=== PATIENT | female | born 1940 | race Caucasian/White ===

== ENCOUNTER 2018-02-23 17:42 | Inpatient (IN) | payer OTHER, MEDICARE ==
[~2018-02-23] VITALS: Ht 149.9 cm; Wt 52.6 kg
[~2018-02-23 17:42] MED LIST: AZOPT 10 ML10 ML OPH; COLACE100 M1 PO; COLACE100 MG PO; COUMADIN 5 MG TA5 MG PO; COUMADIN5 M2 PO; E400400 IU PO; FISH OIL CONCEN1 SGL PO; GLUCOSAMINE500 MG PO; IRON325 M1 PO; MIRALAX17 G1 PO; MULTIVITAMIN1 TAB PO; PERCOCET 325 MG1 TA2 PO; PERCOCET 5-3251 EACH PO; SENNA8.6 M1 PO; TYLENOL TAB 32325 MG PO; ULTRAM(MONOGRAP50 MG PO; VITAMIN C1000 M1 PO; [UNRECOGNIZED DRUG - OTHER] PO; [UNRECOGNIZED DRUG - OTHER] PO
[2018-02-23 18:52] LABS: ABSOLUTE BASOPHIL COUNT 0 /CUMM (0.0-0.2); ABSOLUTE EOSINOPHIL COUNT 0 /CUMM (0.0-0.7); ABSOLUTE GRANULOCYTE CT 1.1 /CUMM (1.4-6.5); ABSOLUTE LYMPH COUNT 0.8 /CUMM (1.2-3.4); ABSOLUTE MONOCYTE COUNT 0.4 /CUMM (0.10-0.60); BASOPHIL % 0.1 % (0.0-2.0); EOSINOPHIL % 0.1 % (0-5); GRANULOCYTE % 46.4 % (42.2-75.2); HEMATOCRIT 26.4 % (37-47); MEAN CORPUSCULAR HGB 32.7 PG (27.0-31.0); MEAN CORPUSCULAR HGB CONC 34.3 G/DL (33.0-37.0); MEAN CORPUSCULAR VOLUME 95.3 FL (81.0-99.0); MEAN PLATELET VOLUME 8.1 FL (7.4-10.4); RBC DISTRIBUTION WIDTH 14.9 % (11.5-14.5); WHITE BLOOD CELL COUNT 2.4 /CUMM (4.8-10.8)
[2018-02-23 18:53] LABS: PLATELET COUNT 76 /CUMM (130-400)
--- NOTE | 2018-02-23 19:50 | ED GENERAL ADULT ---
History of Present Illness General Chief Complaint: General Adult Stated Complaint: SIB PCP, ABNORMAL LAB RESULTS Source: patient, family, old records Exam Limitations: no limitations Vital Signs & Intake/Output Vital Signs & Intake/Output Vital Signs Date Time Temp Pulse Resp B/P B/P Pulse O2 O2 Flow FiO2 Mean Ox Delivery Rate 02/25 1419 97.2 88 20 110/70 97 02/25 0600 98.3 82 16 94/52 98 Room Air 02/24 2244 98.5 90 18 104/50 97 Room Air ED Intake and Output 02/25 0000 02/24 1200 Intake Total 2400 730 Output Total Balance 2400 730 Intake, IV 1200 250 Intake, Oral 1200 480 Patient 116 lb Weight Weight Reported by Patient Measurement Method Allergies Coded Allergies: Penicillins (ANKLE RASH 07/05/16) adhesive (RED SKIN 07/05/16) Uncoded Allergies: sensitive to odors (cough 02/02/15) Triage Note: PT PRESENTS TO THE ER C/O WEAKNESS. PT WAS SEEN BY PCP AND WAS SENT IN DUE TO BLOOD VALUES.. PER PT WEAK SINCE LAST WEEK AROUND FRIDAY OR FRIDAY.. PT ALSO HAS PETECHIA BLE. Triage Nurses Notes Reviewed? yes Onset: Gradual Duration: week(s): Severity: moderate HPI: This is a 77-year-old female with history of glaucoma, presenting to the emergency department with several weeks of progressive weakness outpatient labs which were significant for a newly discovered pancytopenia. Patient also notes she has bilateral lower extremity petechia which is new, first noticed today. She sought care at her doctor because of her progressive fatigue which is worse with exertion. She states that she has some difficulty climbing stairs, although denies shortness of breath. She has had no chest pain, fever, chills, vomiting, diarrhea. She has a reasonable appetite and has not changed her diet. She has had no recent travel. She does state she has been stressed recently although this is not particularly new. (Allen ESPINOZA,Edson) Reconcile Medications Atovaquone (Mepron) 750 MG/5 ML ORAL.SUSP 750 MG PO Q12H BABEISIOSIS Azithromycin (Zithromax) 250 MG TABLET 250 MG PO DAILY BABEISIOSIS Brinzolamide (Azopt 10 Ml) 1 % DROPS.SUSP 1 GTT OPH BID BOTH EYES- GLAUCOMA ( Reported) Doxycycline Hyclate 100 MG CAPSULE 1 CAP PO BID TICK [place]ORNE ILLNESS (Kameron SAPPJayant (TBS)) Past History Travel History Traveled to [place] past 21 day No Medical History Any Pertinent Medical History? 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 Relation not specified for: *No pertinent family history Hx Contributory? No (Edson Villa MD) Review of Systems Review of Systems Constitutional: Reports: malaise, weakness. Denies: chills, diaphoresis, fever. EENTM: Reports: no symptoms. Respiratory: Reports: no symptoms. Cardiovascular: Reports: no symptoms. GI: Reports: no symptoms. Genitourinary: Reports: no symptoms. Musculoskeletal: Reports: no symptoms. Skin: Reports: rash. Neurological/Psychological: Reports: no symptoms. Hematologic/Endocrine: Reports: no symptoms. (Edson Villa MD) Physical Exam Physical Exam General Appearance: well developed/nourished, no apparent distress, alert, awake , comfortable, thin Head: atraumatic, normal appearance Ears, Nose, Throat: normal pharynx, normal ENT inspection Neck: normal inspection, full range of motion Respiratory: normal breath sounds, chest non-tender, no respiratory distress Cardiovascular: regular rate/rhythm, normal peripheral pulses Gastrointestinal: normal bowel sounds, soft, non-tender, no organomegaly Back: normal inspection, normal range of motion Extremities: normal inspection, normal capillary refill, normal range of motion, no edema Skin: scattered petechia to bilateral lower extremities Core Measures ACS in differential dx? No CVA/TIA Diagnosis: No Sepsis Present: No Sepsis Focused Exam Completed? No (Edson Villa MD) Progress Differential Diagnoses I considered the following diagnoses in my evaluation of the patient: Blood dyscrasia, bone marrow failure, unknown toxic exposure, leukemia, low suspicion for acute infectious process. Plan of Care: Current Medications Sig/Dale Start time Last Medication Dose Stop Time Status Admin Azithromycin 250 MG Q24H 02/25 1000 AC 02/25 (Zithromax) 1040 Doxycycline Hyclate 100 MG Q12 02/24 2100 AC 02/25 (Vibramycin) 0931 Sodium Chloride 100 ML (Normal Saline 0.9%) Atovaquone 750 MG Q12H 02/24 1000 AC 02/25 (Mepron Angela 750MG/ 1040 5ML) Lactobacillus 1 CAP BID 02/24 0900 AC 02/25 Acidophilus 0903 (Probiotic) Laboratory Tests 02/25/18 0720: Anion Gap 8, Estimated GFR > 60, BUN/Creatinine Ratio 18.3, Factor VII Pending, CBC w Diff MAN DIFF ORDERED, RBC 2.72 L, MCV 92.9, MCH 31.6 H, MCHC 34.0, RDW 16.2 H, MPV 7.1 L, Segmented Neutrophils 30 L, Band Neutrophils 8 H, Lymphocytes 48, Monocytes 14 H, Platelet Estimate DECREASED, Polychromasia 1+, Anisocytosis 1+ This otherwise healthy 77-year-old female arrives with several weeks of progressive weakness and a newly identified pancytopenia. She also has lower extremity petechia. She is fatigued but in no acute distress with reassuring vital signs and a nonfocal exam apart from her skin findings. Case is discussed with on-call hospitalist. She agrees that the patient should be admitted for prompt hematologic consultation. She requests CT chest abdomen pelvis with IV contrast. Patient initially admitted on observation status. Initial ED EKG: normal intervals, normal p-waves, normal QRS complex, normal sinus rhythm, LAD (Allen ESPINOZA,Edson) Departure Departure Time of Disposition: 2241 Disposition: STILL A PATIENT Condition: Stable Clinical Impression Primary Impression: Symptomatic anemia Secondary Impressions: Pancytopenia Referrals: Jeri Syed MD (PCP/Family) Departure Forms: Customer Survey General Discharge Information Observation Note Spoke With: Florian ESPINOZA,Meena Physician Advisor Notified: JAYANT MONTES DE OCA DO Place Patient In: Non-ED OBS Care Area Rationale for Observation: My rational for observation is as follows Hematology consultation for new-onset pancytopenia, plan for repeat lab work; plan for cross-sectional imaging and frequent vital signs. (Edson Villa MD) Departure Prescriptions: Current Visit Scripts Azithromycin (Zithromax) 250 MG PO DAILY #8 TAB Atovaquone (Mepron) 750 MG PO Q12H #70 ML Doxycycline Hyclate 1 CAP PO BID #14 CAP PA/COPPER ETCHER Co-Sign Statement Statement: ED Attending supervision documentation- [] I saw and evaluated the patient. I have also reviewed all the pertinent lab results and diagnostic results. I agree with the findings and the plan of care as documented in the PA's/COPPER ETCHER's documentation. [x] I have reviewed the ED Record and agree with the PA's/COPPER ETCHER's documentation. [] Additions or exceptions (if any) to the PAs/COPPER ETCHER's note and plan are summarized below: [] (Jayant Montes De Oca DO (TBS)) Critical Care Note Critical Care Note Critical Care Time: non-applicable (Edson Villa MD) ED Attending Observation Initial Observation Note: I have seen and personally examined SONJA PINEDA on 02/23/18 at 2242. I agree with the current emergency department documentation. The disposition (admission or discharge) is uncertain at this time, she needs a period of observation for the following reason(s): The ED Nurse caring for this patient has been personally informed as to what the patient is being observed for. (Edson Villa MD)
--- NOTE | 2018-02-23 22:00 | CT SCAN REPORT ---
EXAMINATION: CT CHEST, ABDOMEN AND PELVIS. CLINICAL INFORMATION: Pancytopenia and weakness. COMPARISON: None TECHNIQUE: 5 mm thin axial and 3 mm reconstructed sagittal coronal images of chest, abdomen pelvis were obtained following IV 95 mL Optiray 320. DLP 323. FINDINGS: CHEST: The lungs are well-expanded without any acute pneumonic consolidation. There is a 3 mm calcified nodule left upper lobe, axial image 19, series 3. No additional nodule visualized. The thyroid lobes are symmetrical and normal. The central trachea and bronchi are widely patent. The heart size and the great vessels are normal caliber. No abnormal size mediastinal lymph nodes seen. No pericardial effusion. There is no pleural effusion or thickening. The axilla and the chest wall appears unremarkable. ABDOMEN AND PELVIS: Visualized liver, spleen, pancreas and bilateral adrenal glands unremarkable. The gallbladder is normal size without any radiopaque calculi. Both kidneys are normal size, shape and position. Punctate hypodensity seen in the midpole left kidney cortex question cysts. No radiopaque calculi or hydronephrosis seen. The abdominal aorta appears normal caliber. No large size lymph nodes seen. There is scattered stool and gas and stool throughout the colon without distention. The small bowel loops are normal caliber. The abdominal wall appears unremarkable. Imaging through the pelvis reveals unremarkable distended urinary bladder. The uterus is not visualized likely from previous surgery. No free fluid. Bone windows reveal grade 1 anterolisthesis L4-L5 with degenerative L5-S1 disc changes. Moderate bilateral facet joint hypertrophy at L4-L5 disc level is noted from likely L4 pars defect. No lytic or sclerotic process seen. IMPRESSION: Small calcified nodule left upper lobe. No additional nodule, mass or consolidation seen. No acute process seen in the abdomen or pelvis.
--- NOTE | 2018-02-23 22:46 | History & Physical ---
Severo ESPINOZA,Jacob 02/23/18 0756: General Information and HPI MD Statement: I have seen and personally examined SONJA PINEDA and documented this H&P. The patient is a 77 year old F who presented with a patient stated chief complaint of [fatigue with pancytopenia]. Source of Information: patient, old records Exam Limitations: no limitations History of Present Illness: Patient is a 77-year-old female with a PMH significant for leukopenia, anemia, osteoarthritis, spinal stenosis, Lyme disease who presents to the [facility] ED complaining of a two-week history of fatigue. Patient reports that her past 2 weeks she has experienced extreme fatigue, when she is normally a very active person. During that time she has had intermittent chills and fever over the last couple of days with a T-max at home of 101. She also reports rhinorrhea, postnasal drip, decreased appetite and reports being under a significant amount of stress recently. She also states that she believes that her voice has been changing during this time and is more raspy than normal. She first noticed a rash on her lower extremities on the day of admission. She reports spending a significant amount of time outdoors and her yard is adjacent to a wooded area. She does not recall any recent tick bites. she denies any night sweats, recent weight loss, nausea, vomiting, diarrhea, dysuria, hematuria , melena, BRBPR. Allergies/Medications Allergies: Coded Allergies: Penicillins (ANKLE RASH 07/05/16) adhesive (RED SKIN 07/05/16) Uncoded Allergies: sensitive to odors (cough 02/02/15) Observation Initial Note - I have personally examined SONJA PINEDA on 02/24/18 at 0107. The disposition of SONJA PINEDA is uncertain at this time and before a determination can be made, she requires a period of observation for the following reasons [fatigue with pancytopenia] Past History Travel History Traveled to [place] past 21 day No Medical History Neurological: NONE EENT: NONE (alcohol detox), benign positional vertigo (History straightforward he had), glaucoma Cardiovascular: conduction pathway block hypotension Respiratory: NONE Gastrointestinal: NONE Hepatic: NONE Renal: NONE Musculoskeletal: degen joint disease, osteoarthritis Psychiatric: NONE Endocrine: NONE Blood Disorders: leukopenia Cancer(s): NONE 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 Relation not specified for: *No pertinent family history Psychosocial History Where do you live? Home Who Do You Live With? spouse Services at Home: None Primary Language: Citizen Of [place] Smoking Status: Never Smoked ETOH Use: occasional use Illicit Drug Use: denies illicit drug use Functional Ability ADLs Independent: dressing, eating, toileting, bathing. Ambulation: independent IADLs Independent: shopping, housework, finances, food prep, telephone, transportation , medication admin. Review of Systems Review of Systems Constitutional: Reports: see HPI, chills, fever. Denies: unexplained weight loss. EENTM: Reports: see HPI, nasal congestion. Denies: blurred vision, double vision, visual changes. Cardiovascular: Denies: chest pain, edema, orthopena, palpitations, syncope. Respiratory: Denies: cough, short of breath, sputum production. GI: Denies: abdominal pain, constipation, diarrhea, melena, nausea, bloody stool, vomiting. Genitourinary: Denies: dysuria, frequency, hematuria. Musculoskeletal: Reports: no symptoms. Skin: Reports: rash. Neurological/Psychological: Denies: anxiety. Hematologic/Endocrine: Reports: bruising. Exam & Diagnostic Data Last 24 Hrs of Vital Signs/I&O Vital Signs Date Time Temp Pulse Resp B/P B/P Pulse O2 O2 Flow FiO2 Mean Ox Delivery Rate 02/23 2350 98.9 88 20 108/53 97 Room Air 02/23 2233 99.7 96 16 108/59 98 Room Air 02/23 2010 99.4 92 16 111/55 97 Room Air 02/23 1922 Room Air 02/23 1801 99.9 105 16 104/61 98 Room Air Intake & Output 02/24 0800 02/24 0000 02/23 1600 Intake Total 240 Output Total Balance 240 Intake, Oral 240 Patient 116 lb Weight Weight Reported by Patient Measurement Method Physical Exam General Appearance Alert, Oriented X3, Cooperative, No Acute Distress Skin nonblanchable petechia on the bilateral lower extremities from the knees to the ankles Skin Temp/Moisture Exam: Warm/Dry Sepsis Skin Exam (color): Normal for Ethnicity Neck Supple, No LAD Lymphatic Axillary nl, Cervical nl Cardiovascular Regular Rate, Normal S1, Normal S2 Lungs Clear to Auscultation, Normal Air Movement Abdomen Normal Bowel Sounds, Soft, No Tenderness Neurological Normal Speech, Strength at 5/5 X4 Ext, Normal Tone, Sensation Intact, Cranial Nerves 3-12 NL Extremities No Clubbing, No Cyanosis, No Edema Last 24 Hrs of Labs/Gutierrez: Laboratory Tests 02/24/18 0330: Lyme Disease Antibody Pending 02/23/182044: Urine Color YEL, Urine Clarity CLEAR, Urine pH 6.0, Ur Specific [place] 1.010, Urine Protein NEG, Urine Ketones NEG, Urine Nitrite NEG, Urine Bilirubin NEG, Urine Urobilinogen 0.2, Ur Leukocyte Esterase NEG, Ur Microscopic SEDIMENT EXAMINED, Urine RBC RARE, Urine WBC RARE, Ur Epithelial Cells RARE, Urine Bacteria FEW H, Urine Mucus RARE, Urine Hemoglobin TRACE-INTACT, Urine Glucose NEG 02/23/181831: Haptoglobin Pending 02/23/181831: Iron 32 L, TIBC 219 L, Ferritin 909.0 H, Total Bilirubin 1.2, Lactate Dehydrogenase 1264 H, Creatine Kinase 162 H, Vitamin B12 738, Folate > 20.0 H , TSH &T3 &Free T4 Intrp 1.700, CBC w Diff NO MAN DIFF REQ, RBC 2.77 L, MCV 95.3, MCH 32.7 H, MCHC 34.3, RDW 14.9 H, MPV 8.1, Gran % 46.4, Lymphocytes % 34.8, Monocytes % 18.6 H, Eosinophils % 0.1, Basophils % 0.1, Absolute Granulocytes 1.1 L, Absolute Lymphocytes 0.8 L, Absolute Monocytes 0.4, Absolute Eosinophils 0, Absolute Basophils 0 Diagnostic Data Other Results CT chest/abd/pelvis with IV contrast CHEST: The lungs are well-expanded without any acute pneumonic consolidation. There is a 3 mm calcified nodule left upper lobe, axial image 19, series 3. No additional nodule visualized. The thyroid lobes are symmetrical and normal. The central trachea and bronchi are widely patent. The heart size and the great vessels are normal caliber. No abnormal size mediastinal lymph nodes seen. No pericardial effusion. There is no pleural effusion or thickening. The axilla and the chest wall appears unremarkable. ABDOMEN AND PELVIS: Visualized liver, spleen, pancreas and bilateral adrenal glands unremarkable. The gallbladder is normal size without any radiopaque calculi. Both kidneys are normal size, shape and position. Punctate hypodensity seen in the midpole left kidney cortex question cysts. No radiopaque calculi or hydronephrosis seen. The abdominal aorta appears normal caliber. No large size lymph nodes seen. There is scattered stool and gas and stool throughout the colon without distention. The small bowel loops are normal caliber. The abdominal wall appears unremarkable. Imaging through the pelvis reveals unremarkable distended urinary bladder. The uterus is not visualized likely from previous surgery. No free fluid. Bone windows reveal grade 1 anterolisthesis L4-L5 with degenerative L5-S1 disc changes. Moderate bilateral facet joint hypertrophy at L4-L5 disc level is noted from likely L4 pars defect. No lytic or sclerotic process seen. IMPRESSION: Small calcified nodule left upper lobe. No additional nodule, mass or consolidation seen. No acute process seen in the abdomen or pelvis. Assessment/Plan Assessment: Patient is a 77-year-old female with a PMH significant for leukopenia, anemia, osteoarthritis, spinal stenosis, Lyme disease who presents to the [facility] ED complaining of a two-week history of fatigue. She has had associated rhinorrhea, postnasal drip, fever, chills, and on the day of admission developed a nonblanching petechial rash on her bilateral distal lower extremities. Vital signs on admission: T 99.9, P105, RR 16, BP 104/61, pulse ox 98% on room air Labs: WBC 2.4, H/H 9.0/26.4, MCV 95.3 platelets 76, sodium 135, potassium 4.2, chloride 99, CO2 24, BUN 20, creatinine 0.7, glucose 103, iron 32, TIBC 219, ferritin 909, AST 73, ALT 45, LDH 1264, creatinine kinase 162, B12 738, folate > 20, guaiac negative stool done in ED Problem list #Pancytopenia, with iron studies suggestive of anemia of chronic disease, possible secondary to tickborne illness although patient does not recall tick bite, also possible DIC with elevated LDH #chronic medical problems including osteoarthritis, spinal stenosis Plan -Placed in observation in the general medicine floor -Hematology consult placed with the answering service of Dr. Bustillos -ID consult to be placed in a.m. -Follow-up DIC panel, haptoglobin -Follow-up repeat CBCs in a.m. -Tick panel, empirically given 1 dose of doxycycline IV -Follow-up peripheral smear Diet: Regular diet DVT prophylaxis: Alps. Hold off pharmacologic DVT prophylaxis for now, if platelet level remains stable or increased consider starting subcutaneous heparin CODE STATUS: Full code As Ranked By This Provider Problem List: 1. Pancytopenia Core Measures/Misc (05/25) Acute Coronary Syndrome ACS Diagnosis: No Congestive Heart Failure Congestive Heart Failure Diagnosis No Cerebrovascular Accident CVA/TIA Diagnosis: No VTE (View Protocol) VTE Risk Factors Age>40 No Mechanical VTE Prophylaxis d/t N/A MechProphylax Ordered No VTE Pharm Prophylaxis d/t Platelets below ref range Sepsis (View protocol) Sepsis Present: No If YES complete Sepsis Event Note If YES complete Sepsis Event Note Eric ESPINOZA,[facility] 02/23/18 4401: General Information and HPI Allergies/Medications Home Med list Brinzolamide (Azopt 10 Ml) 1 % DROPS.SUSP 1 GTT OPH BID BOTH EYES- GLAUCOMA ( Reported) Core Measures/Misc (05/25) Sepsis (View protocol) If YES complete Sepsis Event Note If YES complete Sepsis Event Note Resident Review Statement Resident Statement: examined this patient, discussed with program management intern, agreed with program management intern Other Findings: HPI: 77/F with PMHx of chronic leukopenia & anemia, osteoarthritis, spinal stenosis, migraine, uterine cancer s/p hysterectomy, bilateral knee replacement, bilateral cataract surgery, and glaucoma who presents with CC of fatigue for the past 2 weeks. The pt was feeling generalized weakness and fatigue for the past 2 weeks, for the past 2 days she reported associated fever and chills with a measured home temperature of 101. She reports recent postnasal drip, poor appetite, hoarseness of voice and rhinorrhea. The patient was visiting her PCP when she noticed fashion her lower extremity, she had recent outdoor activities. She denies any other active complaints. Vitals: Temperature of 99.9 heartrate of 90s, BP in lower border of normal, o2 in upper 90s% on RA Labs: WBC 2.4, H&H 9&26, platelets 76, Na 135, iron profile shows anemia of chronic disease, AST 73, LDH 1264, CK 162. Imaging: CT chest& abdomen showed small calcification noted on the left upper lobe and no acute intra-abdominal or pelvis pathology. Assessment: Patient present with pancytopenia and bilateral lower extremity petechial rash up to the knees more anterior than posterior. She reports spending significant amount of time outdoor doing yard work. We send for peripheral blood smear and lab reported possible intra-RBCs inclusions bodies. She has pending, babesiosis , and ehrlichiosis. We started the patient on doxycycline and we will ask for ID consult in the morning. The patient has leukopenia and anemia for a long time for which we will ask for hematology consult. Problem list: * Pancytopenia, with LE petechiae * Generalize weakness and fatigue * RBCs inclusions bodies most likely secondary tick transmitted infection * Osteoarthritis * Spinal stenosis Plan: * Placed in observation and general medicine floor * Start doxycycline * Follow pending tick panel * Repeat CBCs in a.m. * Follow DIC panel, reticulocyte count, haptoglobin * Follow peripheral smear official report in a.m. * Hematology and ID consult -Regular diet -DVT PPx with ALPS, we will hold on pharmacological until thrombocytopenia followed in a.m. - Florian ESPINOZA, [facility] 02/24/18 0546: Core Measures/Misc (05/25) Sepsis (View protocol) If YES complete Sepsis Event Note If YES complete Sepsis Event Note Attending MD Review Statement Attending Statement Attending MD Statement: examined this patient, discuss w/resident/PA/PLYWOOD MATCHER, agreed w/resident/PA/PLYWOOD MATCHER, discussed with family, reviewed images, amended to note Attending Assessment/Plan: 77 yo F with h/o uterine cancer s/p hysterectomy, glaucoma, BPPV, Lyme disease, OA, spinal stenosis, baseline chronic anemia and leukopenia is sent in by PCP for abnormal labs. Patient reports 2-week h/o fatigue, tiredness, chills, low appetite and Tmax of 101. She had blood work done which showed pancytopenia and she was asked to come to ER for further evaluation. Tick panel sent by PCP is still pending. She also reports bilateral lower extremity petechial rash. She has no recent travel. No sick contacts. [place] and has been outdoors but is not sure if she may have had a tick bite. She does reports post nasal drip and a raspy voice. She denies chest pain, dyspnea or palpitations. No weight loss or night sweats. Vitals stable. Exam as above notable for nonblanching petechia to both lower extremities. Labs: WBC 2.4, H/H 9.0/26.4, Plt 76 (previously normal), Na 135, BUN 20, glucose 103, T. Bili 1.2, ALT 45, AST 73. LDH 1264. UA negative. CT chest/abdomen/pelvis: small calcified nodule left upper lobe, no acute process. Spleen not enlarged. EKG: sinus rhythm, LAD, no acute changes. Assessment and plan: 1. Pancytopenia given the presentation with fever, fatigue, chills, petechial rash, this points towards a tick-borne illness. Peripheral smear has been reported with intranuclear inclusion bodies. 2. Chronic normocytic anemia 3. History of uterine cancer - 23 hour observation on General medicine - Panculture - Await tick borne disease panel - Initiate IV doxycycline - Gentle IV hydration - Obtain ID consult - Await hematology consult - Check PT/INR, hemolysis work up. - Resume home meds DVT ppx Alps. Full code.
[2018-02-23 23:50] VITALS: BP 108/53
[2018-02-24 06:07] VITALS: BP 122/68
--- NOTE | 2018-02-24 07:27 | Cons- Hematology ---
General Information and HPI Consulting Request Date of Consult: 02/24/18 Requested By: Florian ESPINOZA,Meena History of Present Illness: I was asked to see this 77-year-old woman admitted with fever, fatigue and a recent tick bite. Patient denies headaches or dizziness. Patient denies shortness of breath cough chest pain or hemoptysis. Patient denies nausea vomiting diarrhea change in bowel habits. Patient denies GI blood loss. Patient denies dysuria hematuria. Patient denies bone aches or focal neurologic deficit. Patient does complain of a rash in the lower extremity. Past medical history is significant for"lifelong"leukopenia. Her son is has also been told of a low white count no formal hematologic consultations have ever been requested. Patient also has a history of early uterine cancer which she underwent surgery alone. Allergies/Medications Allergies: Coded Allergies: Penicillins (ANKLE RASH 07/05/16) adhesive (RED SKIN 07/05/16) Uncoded Allergies: sensitive to odors (cough 02/02/15) Home Med List: Brinzolamide (Azopt 10 Ml) 1 % DROPS.SUSP 1 GTT OPH BID BOTH EYES- GLAUCOMA ( Reported) Current Medications: Current Medications Sig/Dale Start time Last Medication Dose Route Stop Time Status Admin Doxycycline Hyclate 100 MG BID 02/24 0900 CAN PO Doxycycline Hyclate 100 MG Q12 02/24 0900 AC Dextrose/Water 100 ML IV Doxycycline Hyclate 100 MG ONCE ONE 02/23 2315 CAN Dextrose/Water 100 ML IV 02/24 0020 Doxycycline Hyclate 100 MG ONCE ONE 02/23 2315 DC 02/23 PO 02/23 2316 2317 Doxycycline Hyclate 0 .STK-MED ONE 02/23 2302 CAN PO Doxycycline Hyclate 100 MG ONCE ONE 02/23 2300 CAN PO 02/23 2301 Lactobacillus 1 CAP BID 02/24 0900 AC Acidophilus PO Sodium Chloride 1,000 ML Q13H 02/24 0245 AC 02/24 IV 02/24 1544 0303 Review of Systems Review of Systems: see HPI Past History Travel History Traveled to [place] past 21 day No Medical History Blood Transfusion Hx: No Neurological: NONE EENT: NONE (alcohol detox), benign positional vertigo (History straightforward he had), glaucoma Cardiovascular: conduction pathway block hypotension BUNDLE BRANCH BLOCK Respiratory: NONE Gastrointestinal: NONE Hepatic: NONE Renal: NONE Musculoskeletal: degen joint disease, osteoarthritis Psychiatric: NONE Endocrine: NONE Blood Disorders: leukopenia Cancer(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 Relation not specified for: *No pertinent family history Psychosocial History Where Do You Live? Home Who Do You Live With? spouse Services at Home: None Primary Language: Y[place] Smoking Status: Never Smoked ETOH Use: occasional use Illicit Drug Use: denies illicit drug use Functional Ability ADLs Independent: dressing, eating, toileting, bathing. Ambulation: independent IADLs Independent: shopping, housework, finances, food prep, telephone, transportation , medication admin. Exam & Diagnostic Data Vital Signs and I&O Vital Signs Date Time Temp Pulse Resp B/P B/P Pulse O2 O2 Flow FiO2 Mean Ox Delivery Rate 02/24 06 98.9 87 20 122/68 98 Room Air 02/23 2350 98.9 88 20 108/53 97 Room Air 02/23 2233 99.7 96 16 108/59 98 Room Air 02/23 2010 99.4 92 16 111/55 97 Room Air 02/23 1922 Room Air 02/23 1801 99.9 105 16 104/61 98 Room Air Intake & Output 02/24 0800 02/24 0000 02/23 1600 Intake Total 730 240 Output Total Balance 730 240 Intake, IV 250 Intake, Oral 480 240 Patient 116 lb Weight Weight Reported by Patient Measurement Method Gen.: in NAD ENT: Sclera anicteric Chest: Normal respiratory effort, clear breath sounds Cor: RRR, no extra sounds Abdomen: Soft, bowel sounds present, no tenderness, no rebound Extremities: Without clubbing, cyanosis, or edema Neurology: Alert and oriented 3, no gross deficit Skin: Petechiae in lower extremities Last 48 Hours of Lab Results: Laboratory Tests 02/24 02/23 02/23 0330 2045 1832 Hematology Haptoglobin Pending Serology Lyme Disease Antibody Pending Urines Urine Color (YEL,AMB,STR) YEL Urine Clarity (CLEAR) CLEAR Urine pH (5.0 - 8.0) 6.0 Ur Specific [place] (1.001 - 1.035) 1.010 Urine Protein (NEG,<30 MG/DL) NEG Urine Ketones (NEG) NEG Urine Nitrite (NEG) NEG Urine Bilirubin (NEG) NEG Urine Urobilinogen (0.1 - 1.0 EU/dl) 0.2 Ur Leukocyte Esterase (NEG) NEG Ur Microscopic SEDIMENT EXAMINED Urine RBC (0 - 5 /HPF) RARE Urine WBC (0 - 2 /HPF) RARE Ur Epithelial Cells (NONE,FEW) RARE Urine Bacteria (NEG/NONE) FEW H Urine Mucus (FEW,NONE) RARE Urine Hemoglobin (NEG) TRACE-INTACT Urine Glucose (N MG/DL) NEG 02/23 1832 Chemistry Iron (37 - 170 ug/dL) 32 L TIBC (265 - 497 ug/dL) 219 L Ferritin (11.1 - 264 ng/mL) 909.0 H Total Bilirubin (0.2 - 1.3 mg/dL) 1.2 Lactate Dehydrogenase (313 - 618 U/L) 1264 H Creatine Kinase (30 - 135 U/L) 162 H Vitamin B12 (239 - 931 pg/mL) 738 Folate (2.76 - 20.0 ng/mL) > 20.0 H TSH &T3 &Free T4 Intrp (0.270 - 4.20 uIU/mL) 1.700 Hematology CBC w Diff NO MAN DIFF REQ WBC (4.8 - 10.8 /CUMM) 2.4 L RBC (4.20 - 5.40 /CUMM) 2.77 L Hgb (12.0 - 16.0 G/DL) 9.0 L Hct (37 - 47 %) 26.4 L MCV (81.0 - 99.0 FL) 95.3 MCH (27.0 - 31.0 PG) 32.7 H MCHC (33.0 - 37.0 G/DL) 34.3 RDW (11.5 - 14.5 %) 14.9 H Plt Count (130 - 400 /CUMM) 76 L MPV (7.4 - 10.4 FL) 8.1 Gran % (42.2 - 75.2 %) 46.4 Lymphocytes % (20.5 - 51.1 %) 34.8 Monocytes % (1.7 - 9.3 %) 18.6 H Eosinophils % (0 - 5 %) 0.1 Basophils % (0.0 - 2.0 %) 0.1 Absolute Granulocytes (1.4 - 6.5 /CUMM) 1.1 L Absolute Lymphocytes (1.2 - 3.4 /CUMM) 0.8 L Absolute Monocytes (0.10 - 0.60 /CUMM) 0.4 Absolute Eosinophils (0.0 - 0.7 /CUMM) 0 Absolute Basophils (0.0 - 0.2 /CUMM) 0 Peripheral smear-possible red blood cell inclusion bodies, no immature white blood cells Imaging/Other Studies: CT-chest abdomen pelvis-small calcified pulmonary nodule Assessment/Plan Assessment: 1. Pancytopenia-patient's hemogram now manifests new anemia and thrombocytopenia. Careful review with the computer records documents leukopenia as far back as 2002. The clinical scenario and laboratory data are suggestive of a tickborne illness-babesiosis. Patient has begun doxycycline therapy. Recommend- Treatment has begun to tickborne illness, await serologies ID to see patient Await haptoglobin Check stools for occult blood Transfuse as clinically necessary follow CBC 2. Coagulopathy-review the [facility] computer records suggest the patient has always had a borderline elevated PT INR Recommend- Repeat PT PTT Check fibrinogen Check factor VII level 3. Chronic leukopenia-no immediate plans for a bone marrow aspiration biopsy, previous ZEUS was negative I discussed the above with the patient Recommendations: .. Consult Acknowledgment - Thank you for your consult request.
--- NOTE | 2018-02-24 08:00 | PN- Housestaff ---
Preeti ESPINOZA,Minesh 02/24/18 0800: Subjective Follow-up For: Babesiosis Pancytopenia Subjective: Patient was seen and examined today. Reports that she feels significantly better today however continues to have fatigue. Reports rash on legs. Denies any other symptoms. Review of Systems Constitutional: Reports: see HPI. Objective Last 24 Hrs of Vital Signs/I&O Vital Signs Date Time Temp Pulse Resp B/P B/P Pulse O2 O2 Flow FiO2 Mean Ox Delivery Rate 02/24 2244 98.5 90 18 104/50 97 Room Air 02/24 1600 Room Air 02/24 1410 99.0 94 18 108/56 97 Room Air 02/24 0607 98.9 87 20 122/68 98 Room Air 02/23 2350 98.9 88 20 108/53 97 Room Air Intake & Output 02/24 1600 02/24 0800 02/24 0000 Intake Total 1320 730 240 Output Total Balance 1320 730 240 Intake, IV 600 250 Intake, Oral 720 480 240 Patient 116 lb 116 lb Weight Weight Reported by Patient Reported by Patient Measurement Method Physical Exam General Appearance: Alert, Oriented X3, Cooperative, No Acute Distress Skin: petichial rash on legs bilaterally Skin Temp/Moisture Exam: Warm/Dry Sepsis Skin Exam (color): Normal for Ethnicity HEENT: Atraumatic, PERRLA, EOMI, Mucous Membr. moist/pink Cardiovascular: Regular Rate, Normal S1, Normal S2, No Murmurs Lungs: Clear to Auscultation, Normal Air Movement Abdomen: Normal Bowel Sounds, Soft, No Tenderness Neurological: Normal Gait, Normal Speech, Strength at 5/5 X4 Ext, Normal Tone, Sensation Intact, Cranial Nerves 3-12 NL Extremities: No Clubbing, No Cyanosis, No Edema, Normal Pulses, No Tenderness/ Swelling Vascular: Normal Pulses, Pulses Symmetrical Current Medications: Current Medications Sig/Dale Start time Last Medication Dose Route Stop Time Status Admin Atovaquone 750 MG Q12H 02/24 1000 AC 02/24 PO 204 Azithromycin 250 MG Q24H 02/25 1000 AC PO Azithromycin 500 MG Q24H 02/24 1000 DC 02/24 PO 1008 Doxycycline Hyclate 100 MG Q12 02/24 2100 AC 02/24 Sodium Chloride 100 ML IV 2036 Doxycycline Hyclate 100 MG BID 02/24 09 CAN PO Doxycycline Hyclate 100 MG Q12 02/24 0900 DC 02/24 Dextrose/Water 100 ML IV 0826 Doxycycline Hyclate 100 MG ONCE ONE 02/23 2315 CAN Dextrose/Water 100 ML IV 02/24 0020 Doxycycline Hyclate 100 MG ONCE ONE 02/23 2315 DC 02/23 PO 02/23 2316 2317 Doxycycline Hyclate 0 .STK-MED ONE 02/23 2302 CAN PO Doxycycline Hyclate 100 MG ONCE ONE 02/23 2300 CAN PO 02/23 2301 Lactobacillus 1 CAP BID 02/24 0900 AC 02/24 Acidophilus PO 204 Patient Medication 1 ED ONE ONE 02/24 1630 DC 02/24 Teaching ED 02/24 1631 2043 Sodium Chloride 1,000 ML Q13H 02/24 0245 DC 02/24 IV 02/24 1544 0303 Last 24 Hrs of Lab/Gutierrez Results Last 24 Hrs of Labs/Mics: Laboratory Tests 02/24/18 1800: CBC w Diff MAN DIFF ORDERED, RBC 2.81 L, MCV 92.7, MCH 31.8 H, MCHC 34.3, RDW 15.6 H, MPV 7.6, Segmented Neutrophils 41 L, Band Neutrophils 5, Lymphocytes 43, Monocytes 10 H, Eosinophils 1, Platelet Estimate DECREASED, Polychromasia 1 +, Anisocytosis 1+ 02/24/18 0825: APTT Cancelled 02/24/18 0703: Anion Gap 7, Estimated GFR > 60, BUN/Creatinine Ratio 21.4, PT 13.8 H, INR 1.26 H, APTT 34, Fibrinogen Activity 380, D-Dimer High Sensitivty 1170 H, CBC w Diff MAN DIFF ORDERED, RBC 2.29 L, MCV 94.7, MCH 32.2 H, MCHC 34.0, RDW 14.8 H, MPV 8.4, Segmented Neutrophils 55, Band Neutrophils 6 H, Lymphocytes 32, Monocytes 6, Basophils 1, Platelet Estimate DECREASED, Polychromasia 1+, Anisocytosis 1+, Retic Count 2.28 H, Babesia microti DNA PCR Pending, Ehrlichia DNA (PCR) Pending 02/24/18 0330: Lyme Disease Antibody 1.42 *H 02/24/18 0234: Lyme Ab (Western Blot) Pending, Lyme IgG 18 kDa Band Pending, Lyme IgG 23 kDa Band Pending, Lyme IgG 28 kDa Band Pending, Lyme IgG 30 kDa Band Pending, Lyme IgG 39 kDa Band Pending, Lyme IgG 41 kDa Band Pending, Lyme IgG 45 kDa Band Pending, Lyme IgG 58 kDa Band Pending, Lyme IgG 66 kDa Band Pending, Lyme IgG 93 kDa Band Pending, Lyme IgM (Western Blot) Pending, Lyme IgM 23 kDa Band Pending, Lyme IgM 39 kDa Band Pending, Lyme IgM 41 kDa Band Pending Microbiology 02/24 710 BLOOD: Blood Culture - RECD 02/24 710 BLOOD: Blood Culture - RECD Assessment/Plan Assessment: Patient is a 77-year-old female with a PMH significant for leukopenia, anemia, osteoarthritis, spinal stenosis, Lyme disease who presents to the [facility] ED complaining of a two-week history of fatigue. She has had associated rhinorrhea, postnasal drip, fever, chills, and on the day of admission developed a nonblanching petechial rash on her bilateral distal lower extremities. Vital signs on admission: T 99.9, P105, RR 16, BP 104/61, pulse ox 98% on room air Labs: WBC 2.4, H/H 9.0/26.4, MCV 95.3 platelets 76, sodium 135, potassium 4.2, chloride 99, CO2 24, BUN 20, creatinine 0.7, glucose 103, iron 32, TIBC 219, ferritin 909, AST 73, ALT 45, LDH 1264, creatinine kinase 162, B12 738, folate > 20, guaiac negative stool done in ED Problem list 1. Babesosis 2. Pancytopenia 3 Anemia /p 1 prbc 4. chronic medical problems including osteoarthritis, spinal stenosis Plan - Admitted to general medicine floor - Hematology and ID on board - Started atorvaquone and azithromycin today due to intra RBC inclusions and pancytopenia indicative of babesiosis - Continued doxycycline due to possiblity of co-infection -ID consult to be placed in a.m. -Follow-up DIC panel, haptoglobin - Significant anemia - drop in H/H to 7.4, patient was transfused 1pRBC after consent and type and screen - repeat CBC posttransfusion - Follow-up peripheral smear and quantification Diet: Regular diet DVT prophylaxis: Alps. Hold off pharmacologic DVT prophylaxis for now, if platelet level remains stable or increased consider starting subcutaneous heparin CODE STATUS: Full code Problem List: 1. Pancytopenia 2. Babesiosis Pain Ratin Pain Location: n/a Pain Goal: Remain pain free Pain Plan: prn Tomorrow's Labs & Rationales: cbc bep Devonte ESPINOZA,Jimkelly 02/24/18 1114: Attending MD Review Statement Attending Statement Attending MD Statement: examined this patient, discuss w/resident/PA/DIGITAL PRE PRESS OPERATOR, agreed w/resident/PA/DIGITAL PRE PRESS OPERATOR, discussed with family, reviewed EMR data (avail), discussed with nursing, discussed with case mgmt, amended to note Attending Assessment/Plan: Patient seen and examined. No issues overnight reported by nursing staff. Remains afebrile and hemodynamically stable. Resting comfortably and not in any acute distress. Continues to report lethargy. Denies chest pain. Denies shortness of breath. She is afebrile hemodynamically stable this morning. Laboratory data shows evidence of ongoing hemolysis with significant drop in hemoglobin level. Peripheral smear shows inclusion body suggestive of babesiosis. Change antibiotic therapy to atovaquone and azithromycin. Obtain ID consultation. Follow-up Lyme serology. In view of her significant drop in hemoglobin level in anticipation of further drop transfuse 1 unit of PRBC. Repeat hemoglobin level posttransfusion.
[2018-02-24 08:57] LABS: HEMATOCRIT 21.6 % (37-47); MEAN CORPUSCULAR HGB 32.2 PG (27.0-31.0); MEAN CORPUSCULAR VOLUME 94.7 FL (81.0-99.0); MEAN PLATELET VOLUME 8.4 FL (7.4-10.4); PLATELET COUNT 63 /CUMM (130-400); RBC DISTRIBUTION WIDTH 14.8 % (11.5-14.5); RED BLOOD CELL CT 2.29 /CUMM (4.20-5.40); WHITE BLOOD CELL COUNT 1.7 /CUMM (4.8-10.8)
[2018-02-24 09:48] LABS: RED BLOOD CELL CT 2.77 /CUMM (4.20-5.40)
[2018-02-24 09:49] LABS: PT 13.8 SEC (9.4-12.5); PTT 34 SEC (25-37)
[2018-02-24 14:10] VITALS: BP 108/56
--- NOTE | 2018-02-24 14:18 | Cons- Infect Disease ---
General Information and HPI Consulting Request Date of Consult: 02/24/18 Requested By: Siddharth Whitney MD Reason for Consult: Rule out Babesiosis Source of Information: patient History of Present Illness: This is a 77-year-old woman with a history of chronic, unexplained leukopenia, for which she has never sought evaluation, osteoarthritis, spinal stenosis and Lyme disease admitted on February 23 with a two week history of fatigue and several days of fevers and chills after outpatient blood work revealed low blood counts. On admission she was afebrile. Laboratory data revealed a white blood cell count of 2.4, H&H 9 and 26, platelets 76,000, with the peripheral smear revealing occasional atypical and reactive lymphs and red blood cell cytoplasmic ring structures. Chemistries from the morning labs revealed a BUN /creatinine of 20 and 0.7, a bilirubin of 1.5 and AST/ALT of 73 and 45. Urinalysis rare RBC/ rare WBCs. CT of the chest, abdomen and pelvis was negative for any acute process. She was begun on po Doxycycline on admission, which was changed to the IV route this morning after she complained of GI upset and was subsequently discontinued. She was also begun on Azithromycin and Atovaquone this morning. She has remained afebrile since admission. She denies any headaches or joint aches. She does recall removing a tick approximately 1 month prior to admission. Allergies/Medications Allergies: Coded Allergies: Penicillins (ANKLE RASH 07/05/16) adhesive (RED SKIN 07/05/16) Uncoded Allergies: sensitive to odors (cough 02/02/15) Home Med List: Brinzolamide (Azopt 10 Ml) 1 % DROPS.SUSP 1 GTT OPH BID BOTH EYES- GLAUCOMA ( Reported) Past History Travel History Traveled to [place] past 21 day No Medical History Blood Transfusion Hx: No Neurological: NONE EENT: benign positional vertigo (History straightforward he had), glaucoma Cardiovascular: conduction pathway block hypotension BUNDLE BRANCH BLOCK Respiratory: NONE Gastrointestinal: NONE Hepatic: NONE Renal: NONE Musculoskeletal: degen joint disease, osteoarthritis Psychiatric: NONE Endocrine: NONE Blood Disorders: leukopenia 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 Relation not specified for: *No pertinent family history Psychosocial History Where Do You Live? Home Who Do You Live With? spouse Services at Home: None Primary Language: Hebrew Smoking Status: Never Smoked ETOH Use: occasional use Illicit Drug Use: denies illicit drug use Functional Ability ADLs Independent: dressing, eating, toileting, bathing. Ambulation: independent IADLs Independent: shopping, housework, finances, food prep, telephone, transportation , medication admin. Review of Systems Review of Systems All Other Systems: Reviewed and Negative Exam & Diagnostic Data Last 24 Hrs of Vital Signs/I&O Vital Signs Date Time Temp Pulse Resp B/P B/P Pulse O2 O2 Flow FiO2 Mean Ox Delivery Rate 02/24 06 98.9 87 20 122/68 98 Room Air 02/23 2350 98.9 88 20 108/53 97 Room Air 02/23 2233 99.7 96 16 108/59 98 Room Air 02/23 2010 99.4 92 16 111/55 97 Room Air 02/23 1922 Room Air 02/23 1801 99.9 105 16 104/61 98 Room Air Intake & Output 02/24 1600 02/24 0800 02/24 0000 Intake Total 1320 730 240 Output Total Balance 1320 730 240 Intake, IV 600 250 Intake, Oral 720 480 240 Patient 116 lb 116 lb Weight Weight Reported by Patient Reported by Patient Measurement Method Physical Exam Other Physical Findings: She is awake and alert in no acute distress. She is afebrile. Skin reveals a petechial rash over both lower extremities. HEENT exam is negative. Neck is supple with no adenopathy. Lungs are clear. Heart regular rhythm with a 1/6 systolic ejection murmur. Abdomen is soft, nontender with positive bowel sounds. Back no CVA tenderness. Extremities no cyanosis, clubbing or edema. Neuro is without focality. Last 24 Hours of Lab Results: Laboratory Tests 02/24 02/24 02/24 0825 0703 0330 Chemistry Sodium (137 - 145 mmol/L) 135 L Potassium (3.5 - 5.1 mmol/L) 3.8 Chloride (98 - 107 mmol/L) 103 Carbon Dioxide (22 - 30 mmol/L) 24 Anion Gap (5 - 16) 7 BUN (7 - 17 mg/dL) 15 Creatinine (0.5 - 1.0 mg/dL) 0.7 Estimated GFR (>60 ml/min) > 60 BUN/Creatinine Ratio (7 - 25 %) 21.4 Coagulation PT (9.4 - 12.5 SEC) 13.8 H INR (0.90 - 1.19) 1.26 H APTT (25 - 37 SEC) Cancelled 34 Fibrinogen Activity (200 - 393 MG/DL) 380 D-Dimer High Sensitivty (0 - 243 ng/ml) 1170 H Hematology CBC w Diff MAN DIFF ORDERED WBC (4.8 - 10.8 /CUMM) 1.7 L RBC (4.20 - 5.40 /CUMM) 2.29 L Hgb (12.0 - 16.0 G/DL) 7.4 *L Hct (37 - 47 %) 21.6 L MCV (81.0 - 99.0 FL) 94.7 MCH (27.0 - 31.0 PG) 32.2 H MCHC (33.0 - 37.0 G/DL) 34.0 RDW (11.5 - 14.5 %) 14.8 H Plt Count (130 - 400 /CUMM) 63 L MPV (7.4 - 10.4 FL) 8.4 Segmented Neutrophils (42.2 - 75.2 %) 55 Band Neutrophils (0.0 - 5.0 %) 6 H Lymphocytes (20.5 - 51.1 %) 32 Monocytes (1.7 - 9.3 %) 6 Basophils (0.0 - 2.0 %) 1 Platelet Estimate (ADEQUATE) DECREASED Polychromasia 1+ Anisocytosis 1+ Retic Count (0.5 - 2.0 %) 2.28 H Serology Babesia microti DNA PCR Pending Lyme Disease Antibody (RATIO) 1.42 *H Ehrlichia DNA (PCR) Pending 02/24 02/23 02/23 [phone] Hematology Haptoglobin Pending Serology Lyme Ab (Western Blot) Pending Lyme IgG 18 kDa Band Pending Lyme IgG 23 kDa Band Pending Lyme IgG 28 kDa Band Pending Lyme IgG 30 kDa Band Pending Lyme IgG 39 kDa Band Pending Lyme IgG 41 kDa Band Pending Lyme IgG 45 kDa Band Pending Lyme IgG 58 kDa Band Pending Lyme IgG 66 kDa Band Pending Lyme IgG 93 kDa Band Pending Lyme IgM (Western Blot) Pending Lyme IgM 23 kDa Band Pending Lyme IgM 39 kDa Band Pending Lyme IgM 41 kDa Band Pending Urines Urine Color (YEL,AMB,STR) YEL Urine Clarity (CLEAR) CLEAR Urine pH (5.0 - 8.0) 6.0 Ur Specific Harlan (1.001 - 1.035) 1.010 Urine Protein (NEG,<30 MG/DL) NEG Urine Ketones (NEG) NEG Urine Nitrite (NEG) NEG Urine Bilirubin (NEG) NEG Urine Urobilinogen (0.1 - 1.0 EU/dl) 0.2 Ur Leukocyte Esterase (NEG) NEG Ur Microscopic SEDIMENT EXAMINED Urine RBC (0 - 5 /HPF) RARE Urine WBC (0 - 2 /HPF) RARE Ur Epithelial Cells (NONE,FEW) RARE Urine Bacteria (NEG/NONE) FEW H Urine Mucus (FEW,NONE) RARE Urine Hemoglobin (NEG) TRACE-INTACT Urine Glucose (N MG/DL) NEG 02/23 1832 Chemistry Iron (37 - 170 ug/dL) 32 L TIBC (265 - 497 ug/dL) 219 L Ferritin (11.1 - 264 ng/mL) 909.0 H Total Bilirubin (0.2 - 1.3 mg/dL) 1.2 Lactate Dehydrogenase (313 - 618 U/L) 1264 H Creatine Kinase (30 - 135 U/L) 162 H Vitamin B12 (239 - 931 pg/mL) 738 Folate (2.76 - 20.0 ng/mL) > 20.0 H TSH &T3 &Free T4 Intrp (0.270 - 4.20 uIU/mL) 1.700 Hematology CBC w Diff NO MAN DIFF REQ WBC (4.8 - 10.8 /CUMM) 2.4 L RBC (4.20 - 5.40 /CUMM) 2.77 L Hgb (12.0 - 16.0 G/DL) 9.0 L Hct (37 - 47 %) 26.4 L MCV (81.0 - 99.0 FL) 95.3 MCH (27.0 - 31.0 PG) 32.7 H MCHC (33.0 - 37.0 G/DL) 34.3 RDW (11.5 - 14.5 %) 14.9 H Plt Count (130 - 400 /CUMM) 76 L MPV (7.4 - 10.4 FL) 8.1 Gran % (42.2 - 75.2 %) 46.4 Lymphocytes % (20.5 - 51.1 %) 34.8 Monocytes % (1.7 - 9.3 %) 18.6 H Eosinophils % (0 - 5 %) 0.1 Basophils % (0.0 - 2.0 %) 0.1 Absolute Granulocytes (1.4 - 6.5 /CUMM) 1.1 L Absolute Lymphocytes (1.2 - 3.4 /CUMM) 0.8 L Absolute Monocytes (0.10 - 0.60 /CUMM) 0.4 Absolute Eosinophils (0.0 - 0.7 /CUMM) 0 Absolute Basophils (0.0 - 0.2 /CUMM) 0 Last 24 Hours of Gutierrez Results: Blood cultures 2 February 24 pending Diagnostic Data Recent Imaging Findings: CT of the chest, abdomen and pelvis February 23 no acute process Assessment/Plan Assessment/Plan Impression: This is a 77-year-old woman with a history of chronic, unexplained leukopenia and Lyme disease admitted on February 23 with a two week history of fatigue and several days of fevers and chills, found to be afebrile and pancytopenic with her peripheral smear revealing red blood cell cytoplasmic ring structures. Her clinical presentation is consistent with Babesiosis. This is carried by the same tick, Ixodes scapularis, that carries Lyme and Anaplasma and the possibility of coinfection, particularly, with Anaplasma, given her leukopenia and thrombocytopenia, must be considered. She does have a history of chronic leukopenia, making evaluation of this cell line difficult. She has a history of Lyme disease; therefore the positive Lyme titer may not be helpful as, once positive, it stays positive indefinitely; nevertheless the titer does not provide immunity and, therefore, patients can become infected with Lyme multiple times. Suggestion: 1. Follow-up tick panel (which includes Anaplasma PCR and Babesia PCR) 2. Follow serial peripheral smears and parasitemia percentages 3. Continue Doxycycline 100 mg IV every 12 hours (patient reluctant to take it orally secondary to GI upset) 4. Decrease Azithromycin to 250 mg p.o. every 24 hours beginning in the a.m. and continue for a total of 7-10 days 5. Continue Atovaquone 750 mg p.o. every 12 hours for a total of 7-10 days Consult Acknowledgment - Thank you for your consult request.
[2018-02-24 18:38] LABS: MEAN CORPUSCULAR HGB 31.8 PG (27.0-31.0); MEAN CORPUSCULAR HGB CONC 34.3 G/DL (33.0-37.0); MEAN CORPUSCULAR VOLUME 92.7 FL (81.0-99.0); MEAN PLATELET VOLUME 7.6 FL (7.4-10.4); PLATELET COUNT 75 /CUMM (130-400); RBC DISTRIBUTION WIDTH 15.6 % (11.5-14.5); RED BLOOD CELL CT 2.81 /CUMM (4.20-5.40); WHITE BLOOD CELL COUNT 2.5 /CUMM (4.8-10.8)
[2018-02-24 22:44] VITALS: BP 104/50
[2018-02-25 06:00] VITALS: BP 94/52
--- NOTE | 2018-02-25 07:41 | PN- Housestaff ---
Preeti ESPINOZA,Minesh 02/25/18 0741: Subjective Follow-up For: Babesiosis Pancytopenia Subjective: Patient was seen and examined today. Patient is s/p 1 pRBC yesterday afternoon. Patient reports feeling much better today. Patient states that today she would like to walk around. Patient denies any fever, chills, nausea/vomiting, abdominal pain, chest pain, palpitations, shortness breath. Patient reports no change in appetite. No acute events overnight. Review of Systems Constitutional: Reports: see HPI. Objective Last 24 Hrs of Vital Signs/I&O Vital Signs Date Time Temp Pulse Resp B/P B/P Pulse O2 O2 Flow FiO2 Mean Ox Delivery Rate 02/25 06 98.3 82 16 94/52 98 Room Air 02/24 2244 98.5 90 18 104/50 97 Room Air 02/24 1600 Room Air 02/24 1410 99.0 94 18 108/56 97 Room Air Intake & Output 02/25 0800 02/25 0000 02/24 1600 Intake Total 510 1080 1320 Output Total Balance 510 1080 1320 Intake, IV 150 600 600 Intake, Oral 360 480 720 Patient 116 lb Weight Weight Reported by Patient Measurement Method Physical Exam General Appearance: Alert, Oriented X3, Cooperative, No Acute Distress Skin: diffuse nonblanching petechial rash on lower extremities improved from previous day Skin Temp/Moisture Exam: Warm/Dry HEENT: Atraumatic, PERRLA, EOMI, Mucous Membr. moist/pink Cardiovascular: Regular Rate, Normal S1, Normal S2 Lungs: Clear to Auscultation, Normal Air Movement Abdomen: Normal Bowel Sounds, Soft, No Tenderness Neurological: Normal Speech, Cranial Nerves 3-12 NL Extremities: No Clubbing, No Cyanosis, No Edema, Normal Pulses, No Tenderness/ Swelling Current Medications: Current Medications Sig/Dale Start time Last Medication Dose Route Stop Time Status Admin Atovaquone 750 MG Q12H 02/24 1000 AC 02/24 PO 204 Azithromycin 250 MG Q24H 02/25 1000 AC PO Azithromycin 500 MG Q24H 02/24 1000 DC 02/24 PO 1008 Doxycycline Hyclate 100 MG Q12 02/24 2100 AC 02/24 Sodium Chloride 100 ML IV 2036 Doxycycline Hyclate 100 MG Q12 02/24 09 DC 02/24 Dextrose/Water 100 ML IV 08 Lactobacillus 1 CAP BID 02/24 0900 AC 02/24 Acidophilus PO 2040 Patient Medication 1 ED ONE ONE 02/24 1630 DC 02/24 Teaching ED 02/24 1631 2043 Sodium Chloride 1,000 ML Q13H 02/24 0245 DC 02/24 IV 02/24 1544 0303 Last 24 Hrs of Lab/Gutierrez Results Last 24 Hrs of Labs/Mics: Laboratory Tests 02/25/18 0720: Sodium Pending, Potassium Pending, Chloride Pending, Carbon Dioxide Pending, Anion Gap Pending, BUN Pending, Creatinine Pending, BUN/Creatinine Ratio Pending , Factor VII Pending, CBC w Diff Pending, WBC Pending, RBC Pending, Hgb Pending, Hct Pending, MCV Pending, MCH Pending, MCHC Pending, RDW Pending, Plt Count Pending, MPV Pending 02/24/18 1800: CBC w Diff MAN DIFF ORDERED, RBC 2.81 L, MCV 92.7, MCH 31.8 H, MCHC 34.3, RDW 15.6 H, MPV 7.6, Segmented Neutrophils 41 L, Band Neutrophils 5, Lymphocytes 43, Monocytes 10 H, Eosinophils 1, Platelet Estimate DECREASED, Polychromasia 1 +, Anisocytosis 1+ 02/24/18 0825: APTT Cancelled Assessment/Plan Assessment: Patient is a 77-year-old female with a PMH significant for leukopenia, anemia, osteoarthritis, spinal stenosis, Lyme disease who presents to the [facility] ED complaining of a two-week history of fatigue. She has had associated rhinorrhea, postnasal drip, fever, chills, and on the day of admission developed a nonblanching petechial rash on her bilateral distal lower extremities. Vital signs on admission: T 99.9, P105, RR 16, BP 104/61, pulse ox 98% on room air Labs: WBC 2.4, H/H 9.0/26.4, MCV 95.3 platelets 76, sodium 135, potassium 4.2, chloride 99, CO2 24, BUN 20, creatinine 0.7, glucose 103, iron 32, TIBC 219, ferritin 909, AST 73, ALT 45, LDH 1264, creatinine kinase 162, B12 738, folate > 20, guaiac negative stool done in ED Problem list 1. Babesosis 2. Pancytopenia 3 Anemia /p 1 prbc 4. chronic medical problems including osteoarthritis, spinal stenosis Plan - Admitted to general medicine floor - Hematology and ID on board - Continue atorvaquone and azithromycin due to intra RBC inclusions and pancytopenia indicative of babesiosis - Continued doxycycline due to possiblity of co-infection - H&H stable status post 1 PRBC yesterday. We will recheck CBC in a.m. - Follow-up peripheral smear and quantification for parasitemia Diet: Regular diet DVT prophylaxis: Alps. Hold off pharmacologic DVT prophylaxis for now, if platelet level remains stable or increased consider starting subcutaneous heparin CODE STATUS: Full code Problem List: 1. Babesiosis 2. Pancytopenia Pain Ratin Pain Location: n/a Pain Goal: Remain pain free Pain Plan: prn Tomorrow's Labs & Rationales: cbc Siddharth Whitney MD 02/25/18 1250: Attending MD Review Statement Attending Statement Attending MD Statement: examined this patient, discuss w/resident/PA/LIGHTING ADVISER, agreed w/resident/PA/LIGHTING ADVISER, reviewed EMR data (avail), discussed with nursing, discussed with case mgmt, amended to note Attending Assessment/Plan: Patient seen and examined. Lying comfortably in bed and not in any acute distress. No issues overnight. No new complaints this morning. She reports feeling better. Problems: 1. Babesiosis; based on red cell ring forms noted on peripheral smear. 2. Rule out anaplasmosis; due to high possibility of coinfection 3. Pancytopenia secondary to babesiosis 4. Acute anemia; secondary to hemolysis. Status post transfusion of 1 PRBC. Plan: -Continue antibiotic therapy with azithromycin and atovaquone. Will need to complete 10 days of treatment. -Continue empirically on doxycycline pending results of Anaplasma serology. Will likely require completion of antibiotic therapy due to prolonged turnaround time for the study. -The patient remains clinically stable tomorrow and her CBCs remained stable she may be discharged home on the above antibiotic regimen. Will to determine if patient will tolerate this. Administer a dose of doxycycline tomorrow morning she had complained of nausea and abdominal discomfort after receiving an oral dose of doxycycline yesterday. -
[2018-02-25 08:26] LABS: HEMATOCRIT 25.2 % (37-47); MEAN CORPUSCULAR HGB 31.6 PG (27.0-31.0); MEAN CORPUSCULAR VOLUME 92.9 FL (81.0-99.0); MEAN PLATELET VOLUME 7.1 FL (7.4-10.4); PLATELET COUNT 76 /CUMM (130-400); RBC DISTRIBUTION WIDTH 16.2 % (11.5-14.5); RED BLOOD CELL CT 2.72 /CUMM (4.20-5.40); WHITE BLOOD CELL COUNT 1.8 /CUMM (4.8-10.8)
--- NOTE | 2018-02-25 12:24 | PN- Infect Dx ---
Subjective Subjective: Afebrile. She still complains of weakness. She also notes some abdominal discomfort which she attributes to one of her medications. Objective Last 24 Hrs of Vital Signs/I&O Vital Signs Date Time Temp Pulse Resp B/P B/P Pulse O2 O2 Flow FiO2 Mean Ox Delivery Rate 02/25 0600 98.3 82 16 94/52 98 Room Air 02/24 2244 98.5 90 18 104/50 97 Room Air 02/24 1600 Room Air 02/24 1410 99.0 94 18 108/56 97 Room Air Intake & Output 02/25 1600 02/25 0800 02/25 0000 Intake Total 510 1080 Output Total Balance 510 1080 Intake, IV 150 600 Intake, Oral 360 480 Physical Exam Other Physical Findings: She appears comfortable in no acute distress Lungs are clear Heart regular rhythm with no murmur Extremities no cyanosis, clubbing or edema Results Last 24 Hours of Lab Results: Laboratory Tests 02/25 02/24 0720 1800 Chemistry Sodium (137 - 145 mmol/L) 139 Potassium (3.5 - 5.1 mmol/L) 4.2 Chloride (98 - 107 mmol/L) 110 H Carbon Dioxide (22 - 30 mmol/L) 22 Anion Gap (5 - 16) 8 BUN (7 - 17 mg/dL) 11 Creatinine (0.5 - 1.0 mg/dL) 0.6 Estimated GFR (>60 ml/min) > 60 BUN/Creatinine Ratio (7 - 25 %) 18.3 Coagulation Factor VII Pending Hematology CBC w Diff MAN DIFF ORDERED MAN DIFF ORDERED WBC (4.8 - 10.8 /CUMM) 1.8 L 2.5 L RBC (4.20 - 5.40 /CUMM) 2.72 L 2.81 L Hgb (12.0 - 16.0 G/DL) 8.6 L 8.9 L Hct (37 - 47 %) 25.2 L 26.0 L MCV (81.0 - 99.0 FL) 92.9 92.7 MCH (27.0 - 31.0 PG) 31.6 H 31.8 H MCHC (33.0 - 37.0 G/DL) 34.0 34.3 RDW (11.5 - 14.5 %) 16.2 H 15.6 H Plt Count (130 - 400 /CUMM) 76 L 75 L MPV (7.4 - 10.4 FL) 7.1 L 7.6 Segmented Neutrophils (42.2 - 75.2 %) 30 L 41 L Band Neutrophils (0.0 - 5.0 %) 8 H 5 Lymphocytes (20.5 - 51.1 %) 48 43 Monocytes (1.7 - 9.3 %) 14 H 10 H Eosinophils (0 - 5.0 %) 1 Platelet Estimate (ADEQUATE) DECREASED DECREASED Polychromasia 1+ 1+ Anisocytosis 1+ 1+ Last 24 Hours of Gutierrez Results: Blood cultures February 24 negative Assessment/Plan ID Impression: Stable, with temperatures remaining normal and with her H&H stable, status post transfusion of 1 unit of blood yesterday, though her white blood cell count has decreased from yesterday and her platelet count remains low, now Day 2 of treatment with Azithromycin and 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 She is also on Doxycycline for the possibility of coinfection with Anaplasma, though there were no intracytoplasmic morulae noted. Suggestion: 1. Follow-up tick disease panel 2. Follow serial peripheral smears and parasitemia percentages 3. Continue Azithromycin, Atovaquone and Doxycycline
[2018-02-25 14:19] VITALS: BP 110/70
[2018-02-25] MEDS ORDERED: DOXYCYCLINE HY100 M2 PO (17:17)
[2018-02-25] MEDS ORDERED: MEPRON750 MG/51 PO (17:17)
[2018-02-25] MEDS ORDERED: ZITHROMAX250 M2 PO (17:17)
--- NOTE | 2018-02-25 17:17 | Patient Discharge Instructions ---
Discharge Instructions General Discharge Information You were seen/treated for: Babesiosis (Tick Borne Illness) Pancytopenia (Low blood counts) You had these procedures: 1 red blood cell transfusion Watch for these problems: Fatigue, bleeding, bruising, fever, confusion, abdominal pain, chest pain, shortness of breath Special Instructions: 1. Please follow up with your pcp within 1 week of discharge and have a repeat CBC on 03/02 (you have been given a script for bloodwork) 2. Please follow up with the human resources operations manager within 1 week of discharge 3. Please take the medications as prescribed. Diet Continue normal diet: Yes Acute Coronary Syndrome Inclusion Criteria At DC or during hospital stay patient has or had the following: ACS DIAGNOSIS No Discharge Core Measures Meds if any: Prescribed or Continued at Discharge Meds if any: NOT Prescribed or Continued at Discharge Congestive Heart Failure Inclusion Criteria At DC or during hospital stay patient has or had the following: CHF DIAGNOSIS No Discharge Core Measures Meds if any: Prescribed or Continued at Discharge Meds if any: NOT Prescribed or Continued at Discharge Cerebrovascular accident Inclusion Criteria At DC or during hospital stay patient has or had the following: CVA/TIA Diagnosis No Discharge Core Measures Meds if any: Prescribed or Continued at Discharge Meds if any: NOT Prescribed or Continued at Discharge Venous thromboembolism Inclusion Criteria VTE Diagnosis No VTE Type NONE VTE Confirmed by (Test) NONE Discharge Core Measures - Per Current guidelines, there needs to be overlap - treatment for the first 5 days of Warfarin therapy. - If discharged on Warfarin prior to 5 days of - overlap therapy, the patient will need to be - assessed for post discharge needs including - *Post discharge parental anticoagulation - *Warfarin and/or parental anticoagulation education - *Follow up date to check INR post discharge At least 5 days overlap therapy as Inpatient No Meds if any: Prescribed or Continued at Discharge Note: Overlap Therapy is Warfarin and Anticoagulant Meds if any: NOT Prescribed or Continued at Discharge
[2018-02-25 22:21] VITALS: BP 108/60
[2018-02-26 06:00] VITALS: BP 100/50
--- NOTE | 2018-02-26 07:07 | PN- Housestaff ---
Preeti ESPINOZA,Minesh 02/26/18 0706: Subjective Follow-up For: Babesiosis Pancytopenia Subjective: Patient was seen and examined today. Patient reports she feels a little fatigued today. Otherwise states she has no complaints. Patient reports she slept well and walked around yesterday. Reports no change in appetite. States she has had soft, looser stool yesterday and today. No acute events overnight. Review of Systems Constitutional: Reports: see HPI. Objective Last 24 Hrs of Vital Signs/I&O Vital Signs Date Time Temp Pulse Resp B/P B/P Pulse O2 O2 Flow FiO2 Mean Ox Delivery Rate 02/26 06 97.8 78 18 100/50 97 Room Air 02/25 2221 97.7 88 20 108/60 96 Room Air 02/25 1419 97.2 88 20 110/70 97 Intake & Output 02/26 0800 02/26 0000 02/25 1600 Intake Total 200 290 800 Output Total Balance 200 290 800 Intake, IV 110 Intake, Oral 200 180 800 Physical Exam General Appearance: Alert, Oriented X3, Cooperative, No Acute Distress Skin Temp/Moisture Exam: Warm/Dry Sepsis Skin Exam (color): Normal for Ethnicity HEENT: Atraumatic, PERRLA, EOMI, Mucous Membr. moist/pink Cardiovascular: Regular Rate, Normal S1, Normal S2, No Murmurs Lungs: Clear to Auscultation, Normal Air Movement Abdomen: Normal Bowel Sounds, Soft, No Tenderness Neurological: Normal Gait, Normal Speech, Strength at 5/5 X4 Ext, Normal Tone, Sensation Intact Extremities: diffuse nonblanching petichial rash appears to be improving Current Medications: Current Medications Sig/Dale Start time Last Medication Dose Route Stop Time Status Admin Acetaminophen 325 MG ONCE ONE 02/26 0100 DC 02/26 PO 02/26 0101 0111 Atovaquone 750 MG Q12H 02/24 1000 AC 02/25 PO 2058 Azithromycin 250 MG Q24H 02/25 1000 AC 02/25 PO 1040 Doxycycline Hyclate 100 MG Q12 02/24 2100 AC 02/25 Sodium Chloride 100 ML IV 2058 Lactobacillus 1 CAP BID 02/24 0900 AC 02/25 Acidophilus PO 2058 Ondansetron HCl 4 MG ONCE ONE 02/25 1115 DC PO 02/25 1116 Patient Medication 1 ED ONE ONE 02/25 1245 DC 02/26 Teaching ED 02/25 1246 0704 Last 24 Hrs of Lab/Gutierrez Results Last 24 Hrs of Labs/Mics: Laboratory Tests 02/26/18 0829: Anion Gap 8, Estimated GFR > 60, BUN/Creatinine Ratio 15.7, CBC w Diff MAN DIFF ORDERED, RBC 2.88 L, MCV 93.0, MCH 31.5 H, MCHC 33.8, RDW 16.4 H, MPV 6.7 L, Gran % 32.2 L, Lymphocytes % 50.2, Monocytes % 15.7 H, Eosinophils % 1.7, Basophils % 0.2, Absolute Granulocytes 0.6 L, Segmented Neutrophils 26 L, Band Neutrophils 8 H, Absolute Lymphocytes 0.9 L, Lymphocytes 52 H, Monocytes 11 H, Absolute Monocytes 0.3, Eosinophils 2, Absolute Eosinophils 0, Basophils 1, Absolute Basophils 0, Platelet Estimate DECREASED, Polychromasia 1+, Anisocytosis 1+ Assessment/Plan Assessment: Patient is a pleasant 77 y/o female with a PMH significant for leukopenia, anemia, osteoarthritis, spinal stenosis, Lyme disease who presents to the [facility] ED complaining of a two-week history of fatigue. She has had associated rhinorrhea, postnasal drip, fever, chills, and on the day of admission developed a nonblanching petechial rash on her bilateral distal lower extremities. On presentation: Vital signs: T 99.9, HR 105, RR 16, BP 104/61, pulse ox 98% on room air Labs: WBC 2.4, H/H 9.0/26.4, MCV 95.3 platelets 76, sodium 135, potassium 4.2, chloride 99, CO2 24, BUN 20, creatinine 0.7, glucose 103, iron 32, TIBC 219, ferritin 909, AST 73, ALT 45, LDH 1264, creatinine kinase 162, B12 738, folate > 20, guaiac negative stool done in ED Patient was admitted to the general medical floor for management of the followin. Babesiosis 2. Pancytopenia 3. Anemia s/p 1 pRBC 4. Chronic conditions: osteoarthritis, spinal stenosis Patient was found to have RBC inclusions on peripheral smear with signficant pancytopenia indicative of Babesiosis. Patient was started on Atovaquone, Azithromycin and Doxycyline. Patient evaluated by Infectious disease specialist. Patient's PCR for Babesiosis was positive. Patient had signficant hemolysis and required 1 pRBC. Anaplasmosis PCR was sent for suspicion of co-infection as up to one third of patients with babesiosis can also have concurrent human granulocytic anaplasmosis. Anaplasmosis PCR is still pending. Lyme titers are pending as well. Patient is continued on doxycyline in the interim. Patient's CBC was re-evaluated today and was stable. Patient was discharged with instructions to complete the full course of antibiotics and repeat CBC on 03/02. Due to significant pancytopenia, hematology was consulted. Patient had an ZEUS which shows 1:320 speckled pattern. Patient's reticulocyte count was elevate indicating that her bone marrow is producing cells in the face of her current infection and ongoing acute hemolysis. However due to the chronicity of patient' s pancytopenia she would benefit from further evaluation with hematology. Patient is to follow up with Dr. Marshall within 1 week of discharge for further evaluation and monitoring of chronic pancytopenia. Problem List: 1. Babesiosis 2. Pancytopenia Pain Ratin Pain Location: n/a Pain Goal: Remain pain free Pain Plan: prn Tomorrow's Labs & Rationales: none - stable for discharge today Siddharth Whitney MD 02/26/18 1154: Attending MD Review Statement Attending Statement Attending MD Statement: examined this patient, discuss w/resident/PA/LICENSE AND PERMIT SPECIALIST, agreed w/resident/PA/LICENSE AND PERMIT SPECIALIST, reviewed EMR data (avail), discussed with nursing, discussed with case mgmt, amended to note Attending Assessment/Plan: Patient seen and examined. No issues overnight reported by nursing staff. Remains afebrile and hemodynamically stable. Resting comfortably and not in any acute distress. Reports feeling better compared to presentation. Denies nausea vomiting. Denies headaches. No new complaints this morning. She is looking forward to going home today. Laboratory data shows a hemoglobin levels to be stable. Her platelet count is improving. White cell count remains low but stable. Babesia PCR is positive. Problems: 1. Babesiosis 2. Pancytopenia secondary to above 3. Chronic leukopenia Recommendations: -Patient is medically stable to be discharged home today. -Patient to continue on chronic wound and azithromycin for controlled babesiosis. She will continue doxycycline empirically due to possibility of coinfection with Anaplasma. This may be discontinued if Anaplasma PCR is negative. Complete 10 days of antibiotic therapy. -Patient has neutropenia trending back to 2010. She also has elevated PTT trending back to 2014. She should follow-up with hematology service as an outpatient for further workup. Factor VII level has been ordered as recommended by the hematology service. She should follow-up results with the preparation room worker.
--- NOTE | 2018-02-26 07:28 | PN- Hematology ---
Subjective Subjective: Offers no specific complaints 12 point review of systems unchanged Objective Vital Signs and I&Os Vital Signs Date Time Temp Pulse Resp B/P B/P Pulse O2 O2 Flow FiO2 Mean Ox Delivery Rate 02/26 0600 97.8 78 18 100/50 97 Room Air 02/25 2221 97.7 88 20 108/60 96 Room Air 02/25 1419 97.2 88 20 110/70 97 Intake & Output 02/26 0800 02/26 0000 02/25 1600 02/25 0800 02/25 0000 02/24 1600 Intake Total 200 290 512 037 9570 1320 Output Total Balance 200 290 595 171 7614 1320 Intake, IV 110 150 600 600 Intake, Oral 200 180 800 360 480 720 Patient 116 lb Weight Weight Reported by Patient Measurement Method Gen.: in NAD ENT: Sclera anicteric Chest: Normal respiratory effort, clear breath sounds Cor: RRR, no extra sounds Abdomen: Soft, bowel sounds present, no tenderness, no rebound Extremities: Without clubbing, cyanosis, or asymmetric edema Neurology: Alert and oriented 3, no gross deficit Current Medications: Current Medications Sig/Dale Start time Last Medication Dose Route Stop Time Status Admin Acetaminophen 325 MG ONCE ONE 02/26 0100 DC 02/26 PO 02/26 0101 0111 Atovaquone 750 MG Q12H 02/24 1000 AC 02/25 PO 2058 Azithromycin 250 MG Q24H 02/25 1000 AC 02/25 PO 1040 Doxycycline Hyclate 100 MG Q12 02/24 2100 AC 02/25 Sodium Chloride 100 ML IV 9 Lactobacillus 1 CAP BID 02/24 0900 AC 02/25 Acidophilus PO 2058 Ondansetron HCl 4 MG ONCE ONE 02/25 1115 DC PO 02/25 1116 Patient Medication 1 ED ONE ONE 02/25 1245 DC 02/26 Teaching ED 02/25 1246 0704 Results Last 24 Hours of Lab Results: Laboratory-see flow sheet, haptoglobin <15 Assessment/Plan Hematology Assessment/Recommendations: Presumed babesiosis-with anemia and thrombocytopenia. Patient again reiterated that has had a low white blood count the majority of her life. She did, however tell me today, that she has become more anemic over the years. Recommend- Continue antibiotics Follow CBC Await serologic confirmation of babesiosis Coagulopathy-please obtain factor VII Patient will follow-up in my office after discharge
[2018-02-26 08:57] LABS: ABSOLUTE BASOPHIL COUNT 0 /CUMM (0.0-0.2); ABSOLUTE EOSINOPHIL COUNT 0 /CUMM (0.0-0.7); ABSOLUTE GRANULOCYTE CT 0.6 /CUMM (1.4-6.5); ABSOLUTE LYMPH COUNT 0.9 /CUMM (1.2-3.4); ABSOLUTE MONOCYTE COUNT 0.3 /CUMM (0.10-0.60); BASOPHIL % 0.2 % (0.0-2.0); EOSINOPHIL % 1.7 % (0-5); GRANULOCYTE % 32.2 % (42.2-75.2); HEMATOCRIT 26.7 % (37-47); MEAN CORPUSCULAR HGB 31.5 PG (27.0-31.0); MEAN CORPUSCULAR HGB CONC 33.8 G/DL (33.0-37.0); MEAN PLATELET VOLUME 6.7 FL (7.4-10.4); PLATELET COUNT 103 /CUMM (130-400); RBC DISTRIBUTION WIDTH 16.4 % (11.5-14.5); RED BLOOD CELL CT 2.88 /CUMM (4.20-5.40); WHITE BLOOD CELL COUNT 1.8 /CUMM (4.8-10.8)
[2018-02-26] MEDS ORDERED: DOXYCYCLINE HY100 M2 PO (11:18)
[2018-02-26] MEDS ORDERED: ZITHROMAX250 M2 PO (11:18)
[2018-02-26] MEDS ORDERED: ZOFRAN4 M2 PO (11:18)
[2018-02-26] MEDS ORDERED: MEPRON750 MG/51 PO (11:18)
--- NOTE | 2018-02-26 11:47 | PN- Infect Dx ---
Subjective Subjective: Afebrile. She still notes fatigue but has no other complaints. She has had no further nausea or abdominal discomfort. Objective Last 24 Hrs of Vital Signs/I&O Vital Signs Date Time Temp Pulse Resp B/P B/P Pulse O2 O2 Flow FiO2 Mean Ox Delivery Rate 02/26 0800 Room Air 02/26 0600 97.8 78 18 100/50 97 Room Air 02/25 2221 97.7 88 20 108/60 96 Room Air 02/25 1419 97.2 88 20 110/70 97 Intake & Output 02/26 1600 02/26 0800 02/26 0000 Intake Total 200 290 Output Total Balance 200 290 Intake, IV 110 Intake, Oral 200 180 Physical Exam Other Physical Findings: She appears comfortable in no acute distress Lungs are clear Heart regular rhythm with no murmur Extremities no cyanosis, clubbing or edema Results Last 24 Hours of Lab Results: Laboratory Tests 02/26 08 Chemistry Sodium (137 - 145 mmol/L) 140 Potassium (3.5 - 5.1 mmol/L) 4.1 Chloride (98 - 107 mmol/L) 109 H Carbon Dioxide (22 - 30 mmol/L) 24 Anion Gap (5 - 16) 8 BUN (7 - 17 mg/dL) 11 Creatinine (0.5 - 1.0 mg/dL) 0.7 Estimated GFR (>60 ml/min) > 60 BUN/Creatinine Ratio (7 - 25 %) 15.7 Hematology CBC w Diff MAN DIFF ORDERED WBC (4.8 - 10.8 /CUMM) 1.8 L RBC (4.20 - 5.40 /CUMM) 2.88 L Hgb (12.0 - 16.0 G/DL) 9.0 L Hct (37 - 47 %) 26.7 L MCV (81.0 - 99.0 FL) 93.0 MCH (27.0 - 31.0 PG) 31.5 H MCHC (33.0 - 37.0 G/DL) 33.8 RDW (11.5 - 14.5 %) 16.4 H Plt Count (130 - 400 /CUMM) 103 L MPV (7.4 - 10.4 FL) 6.7 L Gran % (42.2 - 75.2 %) 32.2 L Lymphocytes % (20.5 - 51.1 %) 50.2 Monocytes % (1.7 - 9.3 %) 15.7 H Eosinophils % (0 - 5 %) 1.7 Basophils % (0.0 - 2.0 %) 0.2 Absolute Granulocytes (1.4 - 6.5 /CUMM) 0.6 L Segmented Neutrophils (42.2 - 75.2 %) 26 L Band Neutrophils (0.0 - 5.0 %) 8 H Absolute Lymphocytes (1.2 - 3.4 /CUMM) 0.9 L Lymphocytes (20.5 - 51.1 %) 52 H Monocytes (1.7 - 9.3 %) 11 H Absolute Monocytes (0.10 - 0.60 /CUMM) 0.3 Eosinophils (0 - 5.0 %) 2 Absolute Eosinophils (0.0 - 0.7 /CUMM) 0 Basophils (0.0 - 2.0 %) 1 Absolute Basophils (0.0 - 0.2 /CUMM) 0 Platelet Estimate (ADEQUATE) DECREASED Polychromasia 1+ Anisocytosis 1+ Babesia PCR February 24 positive Tick panel February 23 pending Lyme Western blot pending Last 24 Hours of Gutierrez Results: Blood cultures 2 February 24 negative Assessment/Plan ID Impression: Stable, with temperatures remaining normal, platelets increasing and H&H stable, status post transfusion of 1 unit of blood 2 days ago, now Day 3 of treatment with Azithromycin and Atovaquone for Babesiosis, with the serum PCR for Babesia positive. Her white blood cell count remains low, but this is apparently a chronic problem and, with her positive ZEUS of 1:320, an underlying autoimmune process is possible. She is also on Doxycycline Day 3 of treatment for the possibility of coinfection with Anaplasma, though there were no intracytoplasmic morulae noted. Suggestion: 1. Rheumatology evaluation (can be as an outpatient) 2. Follow-up Anaplasma PCR and Lyme Western blot 3. Continue Azithromycin and Atovaquone for 10 days 4. Continue Doxycycline to plan on 10 days but, if the PCR for Anaplasma is negative, would discontinue
--- NOTE | 2018-02-26 22:45 | Discharge Summary ---
Visit Information Visit Dates Admission Date: 02/23/18 Discharge Date: 02/26/18 Hospital Course Course Attending Physician: Siddharth Whitney MD Primary Care Physician: Kunal ESPINOZA,[facility] Course: Patient is a pleasant 77 y/o female with a PMH significant for leukopenia, anemia, osteoarthritis, spinal stenosis, Lyme disease who presents to the [facility] ED complaining of a two-week history of fatigue. She has had associated rhinorrhea, postnasal drip, fever, chills, and on the day of admission developed a nonblanching petechial rash on her bilateral distal lower extremities. On presentation: Vital signs: T 99.9, HR 105, RR 16, BP 104/61, pulse ox 98% on room air Labs: WBC 2.4, H/H 9.0/26.4, MCV 95.3 platelets 76, sodium 135, potassium 4.2, chloride 99, CO2 24, BUN 20, creatinine 0.7, glucose 103, iron 32, TIBC 219, ferritin 909, AST 73, ALT 45, LDH 1264, creatinine kinase 162, B12 738, folate > 20, guaiac negative stool done in ED Patient was admitted to the general medical floor for management of the followin. Babesiosis 2. Pancytopenia 3. Anemia s/p 1 pRBC 4. Chronic conditions: osteoarthritis, spinal stenosis Patient was found to have RBC inclusions on peripheral smear with signficant pancytopenia indicative of Babesiosis. Patient was started on Atovaquone, Azithromycin and Doxycyline. Patient evaluated by Infectious disease specialist. Patient's PCR for Babesiosis was positive. Patient had signficant hemolysis and required 1 pRBC. Anaplasmosis PCR was sent for suspicion of co-infection as up to one third of patients with babesiosis can also have concurrent human granulocytic anaplasmosis. Anaplasmosis PCR is still pending. Lyme titers are pending as well. Patient is continued on doxycyline in the interim. Patient's CBC was re-evaluated today and was stable. Patient was discharged with instructions to complete the full course of antibiotics and repeat CBC on 03/02. Due to significant pancytopenia, hematology was consulted. Patient had an ZEUS which shows 1:320 speckled pattern. Patient's reticulocyte count was elevate indicating that her bone marrow is producing cells in the face of her current infection and ongoing acute hemolysis. However due to the chronicity of patient' s pancytopenia she would benefit from further evaluation with hematology. Patient is to follow up with Dr. Marshall within 1 week of discharge for further evaluation and monitoring of chronic pancytopenia. Allergies: Coded Allergies: Penicillins (ANKLE RASH 07/05/16) adhesive (RED SKIN 07/05/16) Uncoded Allergies: sensitive to odors (cough 02/02/15) Significant Procedures: Transfusion of 1 pRBC Pertinent Lab Results: SERVICE DATE: 02/23/18-2016 EXAM TYPE: CAT - CT ABD & PELVIS W IV CONTRAST; CT CHEST W IV CONTRAST EXAMINATION: CT CHEST, ABDOMEN AND PELVIS. CLINICAL INFORMATION: Pancytopenia and weakness. COMPARISON: None TECHNIQUE: 5 mm thin axial and 3 mm reconstructed sagittal coronal images of chest, abdomen pelvis were obtained following IV 95 mL Optiray 320. DLP 323. FINDINGS: CHEST: The lungs are well-expanded without any acute pneumonic consolidation. There is a 3 mm calcified nodule left upper lobe, axial image 19, series 3. No additional nodule visualized. The thyroid lobes are symmetrical and normal. The central trachea and bronchi are widely patent. The heart size and the great vessels are normal caliber. No abnormal size mediastinal lymph nodes seen. No pericardial effusion. There is no pleural effusion or thickening. The axilla and the chest wall appears unremarkable. ABDOMEN AND PELVIS: Visualized liver, spleen, pancreas and bilateral adrenal glands unremarkable. The gallbladder is normal size without any radiopaque calculi. Both kidneys are normal size, shape and position. Punctate hypodensity seen in the midpole left kidney cortex question cysts. No radiopaque calculi or hydronephrosis seen. The abdominal aorta appears normal caliber. No large size lymph nodes seen. There is scattered stool and gas and stool throughout the colon without distention. The small bowel loops are normal caliber. The abdominal wall appears unremarkable. Imaging through the pelvis reveals unremarkable distended urinary bladder. The uterus is not visualized likely from previous surgery. No free fluid. Bone windows reveal grade 1 anterolisthesis L4-L5 with degenerative L5-S1 disc changes. Moderate bilateral facet joint hypertrophy at L4-L5 disc level is noted from likely L4 pars defect. No lytic or sclerotic process seen. IMPRESSION: Small calcified nodule left upper lobe. No additional nodule, mass or consolidation seen. No acute process seen in the abdomen or pelvis. Disposition Summary Disposition Principal Diagnosis: Babesiosis Additional Diagnosis: Pancytopenia Discharge Disposition: home or self care Discharge Instructions General Discharge Information Code Status: Full Code Patient's Diet: Regular Patient's Activity: Self-limited Follow-Up Instructions/Appts: 1. Please follow up with your pcp within 1 week of discharge and have a repeat CBC on 03/02 (you have been given a script for bloodwork) 2. Please follow up with the prescription clerk within 1 week of discharge 3. Please take the medications as prescribed Medications at Discharge Discharge Medications: Continue taking these medications: Brinzolamide (Azopt 10 Ml) 1 % DROPS.SUSP 1 Drop In the eye TWICE DAILY Comments: Last Taken:02/04 Time:1000 Start taking the following new medications: Azithromycin (Zithromax) 250 MG TABLET 1 Tablet ORAL DAILY Qty = 8 No Refills Comments: Last Taken:02/26/18 Time: 9:30 AM Doxycycline Hyclate (Doxycycline Hyclate) 100 MG CAPSULE 1 Capsule ORAL TWICE DAILY Qty = 14 No Refills Instructions: TAKE 1 TAB TONIGHT AFTER TAKE 1 TAB IN THE MORNING AND 1 TAB AT NIGHT UNTIL COMPLETED Comments: Last Taken:02/26/18 Time: 9:30 AM RECEIVED IV FORM WHILE IN HOSPITAL Atovaquone (Mepron) 750 MG/5 ML ORAL.SUSP 750 Milligram ORAL Q12H Qty = 70 No Refills Instructions: PLEASE TAKE DAILY PRESCRIBED UNTIL COMPLETED Comments: Last Taken:02/26/18 Time: 9:30 AM Ondansetron HCl (Zofran) 4 MG TABLET 1 Tablet ORAL TWICE DAILY Qty = 10 No Refills Instructions: TAKE ONLY IF NEEDED WHEN NEEDED IF DOXYCYCLINE CONTINUES TO CAUSE NAUSEA . Copies To: Kunal ESPINOZA,Jeri
== END 2018-02-26 13:00 | DRG 868 ==
LOC: ERH 17:42 → ERHI 20:29 → 2NA 20:29 → ENRESERV 22:35 → ENTRNSPT 22:57 → 2NA 23:17 → CMPTRNSPT 02-24 07:06 → 2NA 02-24 09:16 → ENPENDDIS 02-26 11:23 → ENTRNSPT 02-26 12:51 → EDTRNSPTSTS 02-26 12:59 → 2NA 02-26 13:00 → CMPTRNSPT 02-26 13:00
PROVIDERS: Physician Assistant; Student in an Organized Health Care Education/Training Program
PROC: 30233N1 Transfusion of Nonautologous Red Blood Cells into Peripheral Vein, Percutaneous Approach (ICD-10-PCS; principal; 2018-02-24)
DX: B60.0 Babesiosis (principal); D61.818 Other pancytopenia; D68.9 Coagulation defect, unspecified; H40.9 Unspecified glaucoma; D64.9 Anemia, unspecified; Z90.710 Acquired absence of both cervix and uterus; M48.00 Spinal stenosis, site unspecified; M19.90 Unspecified osteoarthritis, unspecified site; H81.10 Benign paroxysmal vertigo, unspecified ear; D72.819 Decreased white blood cell count, unspecified; Z86.19 Personal history of other infectious and parasitic diseases; Z88.0 Allergy status to penicillin; Z91.048 Other nonmedicinal substance allergy status; Z85.42 Personal history of malignant neoplasm of other parts of uterus; Z90.49 Acquired absence of other specified parts of digestive tract; Z96.653 Presence of artificial knee joint, bilateral
CPT/HCPCS: 2NASP; 6030; 86618; 36415; 36592; 74177; 81001; 82436; 83010; 86920; 87040; 87798; 93005; 93010; G0378; J0456; J3101; P9016